=== PATIENT | male | born 1985 | race Caucasian/White ===

== ENCOUNTER 2019-01-14 12:59 | Emergency (ER) | payer MEDICAID, OTHER ==
[~2019-01-14] VITALS: Ht 177.8 cm; Wt 73.3 kg
[2019-01-14 13:04] VITALS: BP 114/76
[2019-01-14] MEDS ORDERED: METH40TA3 PO (13:22)
[2019-01-14] MEDS ORDERED: DEXAMETHASONE 4 MG TABLET ONE (13:27)
[2019-01-14] MEDS ORDERED: HYDROcodone/APAP 7.5-325MG/15ML UDC ONE (13:27)
[2019-01-14] MEDS ORDERED: HYDROcodone/APAP 7.5-325MG/15ML UDC PO ONE (13:30)
[2019-01-14] MEDS ORDERED: PLEASE ENTER ALLERGIES MC SCH (13:30)
[2019-01-14] MEDS ORDERED: DEXAMETHASONE 4 MG TABLET PO ONE (13:30)
== END 2019-01-14 14:28 | disposition home or self-care (01) ==
LOC: ED 14:20
DX: J03.00 Acute streptococcal tonsillitis, unspecified (principal)
CPT/HCPCS: 87880; 99283